=== PATIENT | female | born 1955 | race Caucasian/White ===

== ENCOUNTER 2017-12-25 21:00 | Inpatient (IN) | payer MEDICARE, MEDICAID ==
--- NOTE | 2017-12-25 21:35 | ED Physician Chart ---
ED Chief Complaint/HPI - Patient Information Date Seen:: 12/25/17 Time Seen:: 21:30 Chief Complaint:: sob History of Present Illness:: 62 yr old female with hx of ESRD ON DIALYSIS with sob getting worse no fever or cough some leg swelling Allergies:: Allergies Allergy/AdvReac Type Severity Reaction Status Date / Time Penicillins Allergy Verified 12/25/17 21:11 Vitals:: Vital Signs - 8 hr 12/25/17 21:05 Temp 98.2 F HR 107 RR 20 BP 148/86 O2 Sat % 95 Historian:: Patient ED Review of Systems - Review of Systems General/Constitutional: No fever, No chills, No weight loss, No weakness, No diaphoresis, No edema, No loss of appetite Skin: No skin lesions, No rash, No bruising Head: No headache, No light-headedness Eyes: No loss of vision, No pain, No diplopia ENT: No earache, No nasal drainage, No sore throat, No tinnitus Neck: No neck pain, No swelling, No thyromegaly, No stiffness, No mass noted Cardio Vascular: No chest pain, No palpitations, No PND, No orthopnea, No edema Pulmonary: SOB GI: No nausea, No vomiting, No diarrhea, No pain, No melena, No hematochezia, No constipation, No hematemesis G/U: No dysuria, No frequency, No hematuria Musculoskeletal: No bone or joint pain, No back pain, No muscle pain Endocrine: No polyuria, No polydipsia Psychiatric: No prior psych history, No depression, No anxiety, No suicidal ideation Hematopoietic: No bruising, No lymphadenopathy Allergic/Immuno: No urticaria, No angioedema Neurological: No syncope, No focal symptoms, No weakness, No paresthesia, No headache, No seizure, No dizziness, No confusion, No vertigo ED Past Medical History - Past Medical History Past Medical History: ESRD, Other (renal dialysis) Surgical History: other (large intestine resection) Family Medical History - Family Member Mother History Unknown: Yes ED Physical Exam - Physical Examination General/Constitutional: Awake, Alert Other Gen/Cons comments:: very sob agitated Head: Atraumatic Eyes: Lids, conjuctiva normal Skin: Nl inspection ENMT: External ears, nose nl Neck: Nontender Other Respiratory comments:: sob increased wob and dyspnea Cardio Vascular: RRR GI: No tenderness/rebounding/guarding, No organomegaly : No CVA tenderness Extremities: No tenderness or effusion, Full ROM Neuro/Psych: Alert/oriented, DTR's symmetric Misc: Normal back ED Assessment - Assessment General Assessment: sob renal failure on dialysis ED Septic Shock - . Is Septic Shock (SBP<90, OR Lactate>4 mmol\L) present?: No - <6hrs of presentation: Vital Signs: Vital Signs - 8 hr 12/25/17 21:05 Temp 98.2 F HR 107 RR 20 BP 148/86 O2 Sat % 95 ED Reassessment (Disposition) - Reassessment Reassessment Condition:: Improved - Diagnosis Diagnosis:: sob dyspnea - Patient Disposition Discharge/Transfer:: Acute Care w/in this hosp
[2017-12-25] MEDS ORDERED: Albuterol/Ipratropium Neb 3 ML AERS HHN ONE ×2 (21:45→21:52)
[2017-12-25 22:20] LABS: pH 7.49 (7.35-7.45)
[2017-12-25 22:21] LABS: ALLEN TEST positive
[2017-12-25 22:31] LABS: HEMATOCRIT 30.3 % (41.0-60); HEMOGLOBIN 10.2 gm/dL (12-16); MEAN CORPUSCULAR HEMOGLOBIN 28.6 pg (27.0-31.0); MEAN CORPUSCULAR HGB CONC 33.7 pg (28.0-36.0); PLATELET COUNT 200 Th/cmm (150-400); RED BLOOD COUNT 3.57 Mil/cmm (3.80-5.10); RED CELL DISTRIBUTION WIDTH 15.2 % (11.5-20.0); WHITE BLOOD COUNT 9.5 Th/cmm (4.8-10.8)
[2017-12-25 22:48] LABS: ALBUMIN 3.7 gm/dL (3.7-5.3); ANION GAP 21.4 (7.0-16.0); BILIRUBIN,TOTAL 0.7 mg/dL (0.3-1.0); CALCIUM SERUM 9.8 mg/dL (8.6-10.3); CARBON DIOXIDE 22.4 mEq/L (21.0-31.0); GFR AFRICAN-AMERICAN 7.9 ml/min (>90); GFR NON AFRICAN-AMERICAN 6.6 ml/min; POTASSIUM SERUM 5.8 mEq/L (3.5-5.1); TOTAL PROTEIN,SERUM 7.3 gm/dL (6.0-8.3)
[2017-12-25 22:49] LABS: CREATININE - SERUM 6.8 mg/dL (0.6-1.2)
[2017-12-25 23:00] LABS: LYMPHOCYTE 11 % (20-50); MONOCYTE 1 % (2-10); NEUTROPHILS 88 % (40-80); PLATELET ESTIMATE ADEQUATE (NORMAL); TOTAL CELLS COUNTED 100
[2017-12-25] MEDS ORDERED: Hydrocodone/APAP 10 mg/325 mg Tab ONE (23:57)
[2017-12-26] MEDS: Hydrocodone/APAP 10 mg/325 mg Tab PO PRN ×3 (00:02→20:46)
[2017-12-26 01:06] VITALS: BP 150/82
[2017-12-26] MEDS: Levofloxacin 250mg/50mL 250 MG/50 ML BAG IV SCH (03:27)
[2017-12-26 05:11] LABS: HEMOGLOBIN 10.2 gm/dL (12-16); MEAN CELL VOLUME 84.9 fl (81-100); MEAN PLATELET VOLUME 8.7 fl; PLATELET COUNT 195 Th/cmm (150-400); RED BLOOD COUNT 3.66 Mil/cmm (3.80-5.10); RED CELL DISTRIBUTION WIDTH 14.7 % (11.5-20.0); WHITE BLOOD COUNT 9.2 Th/cmm (4.8-10.8)
[2017-12-26 05:28] LABS: ALBUMIN 3.5 gm/dL (3.7-5.3); ANION GAP 19.9 (7.0-16.0); BILIRUBIN,TOTAL 0.7 mg/dL (0.3-1.0); CALCIUM SERUM 9.9 mg/dL (8.6-10.3); CARBON DIOXIDE 23.3 mEq/L (21.0-31.0); GFR AFRICAN-AMERICAN 7.2 ml/min (>90); GFR NON AFRICAN-AMERICAN 5.9 ml/min; MAGNESIUM 2.2 mg/dL (1.9-2.7); TOTAL PROTEIN,SERUM 7.1 gm/dL (6.0-8.3)
[2017-12-26 05:49] LABS: POTASSIUM SERUM 6.2 mEq/L (3.5-5.1)
[2017-12-26 05:50] LABS: CREATININE - SERUM 7.4 mg/dL (0.6-1.2)
[2017-12-26] MEDS: Albuterol/Ipratropium Neb 3 ML AERS HHN PRN ×3 (05:50→20:09)
[2017-12-26 07:30] LABS: BAND NEUTROPHILE 1 % (0-10); LYMPHOCYTE 8 % (20-50); MONOCYTE 2 % (2-10); NEUTROPHILS 89 % (40-80); TOTAL CELLS COUNTED 100
[2017-12-26] MEDS: Morphine Sulfate 2 mg/mL 1mL Syr IVP PRN ×2 (08:29→15:06)
--- NOTE | 2017-12-26 09:31 | Diagnostic Imaging Report ---
Portable chest x-ray HISTORY: Shortness of breath Prior exams are not available for comparison. The heart is enlarged. There does appear to be degree pulmonary vascular redistribution suggesting an element of cardiac decompensation. Hazy bilateral predominantly lower lobe infiltrates are seen. Changes may be associated with edema. Pneumonia cannot be excluded. Questionable nodular densities in the right upper lobe of the lung. CT scan would provide additional clarification. Correlation with patient history is needed. Right-sided vascular catheter is seen with the tip extending into the region of the right atrium. IMPRESSION: 1. Cardiomegaly lung changes that may be associated with a degree of congestive heart failure. Clinical correlation is needed 2. Questionable nodular densities within the right upper lobe. A CT scan would provide additional clarification
--- NOTE | 2017-12-26 11:24 | Consultation ---
Consult Note - Consult Note Service Date: 12/26/17 Referring Physician: Chloe Vela Consult Note: PHYSICIAN Consultation Note: Date of Admission: 12/25/17 Purpose of Consultation: DIALYSIS STATUS Chief Complaint: SHORTNESS OF BREATH, MISSED DIALYSIS YESTERDAY. History of Present Illness: Patient LEXIS BANKS was admitted to [facility] Telemetry with VOLUME OVERLOAD , POSSIBLE PNA. Past Medical History: MULTIPLE ADMISSIONS SECONDARY TO NONADHERENCE WITH DIALYSIS SCHEDULE ESRD SECONDARY TO DIABETES, HTN HTN DIABETES WITH RENAL, OPHTHO MANIFESTATIONS METASTATIC RENAL CELL CARCINOMA, DENIAL OF DIAGNOSIS--HAD BX DONE AT [facility] THAT SHOWS MALIGNANCY, PT HAS REFUSED TO FOLLOW-UP WITH ONCOLOGY ANEMIA OF ESRD-CANNOT RECEIVE EPOGEN SECONDARY TO ACTIVE RENAL MALIGNANCY SECONDARY HYPERPARATHYROIDISM, RENAL CARDIOMYOPATHY EF 30% NONADHERENCE PAST SURGICAL HISTORY: NEPHRECTOMY STATUS PERMACATH AVF CREATION, NOW NON-FUNCTIONAL SOCIAL HISTORY: NO T/E/D LIVES AT HOME WITH HER SON Allergies Allergy/AdvReac Type Severity Reaction Status Date / Time Penicillins Allergy Verified 12/25/17 21:11 Vital Signs Temp 98.3 F 12/26/17 07:51 Pulse 102 12/26/17 10:15 Resp 18 12/26/17 10:21 BP 147/83 12/26/17 07:51 Pulse Ox 99 12/26/17 10:15 Intake & Output 12/25/17 12/26/17 12/26/17 18:59 06:59 18:59 Weight (lbs) 49.442 kg Other: Weight Source [facility] Laboratory Results - last 24 hr 12/25/17 12/25/17 12/25/17 21:47 22:15 22:15 WBC 9.5 RBC 3.57 L Hgb 10.2 L Hct 30.3 L MCV 85.0 MCH 28.6 MCHC Differential 33.7 RDW 15.2 Plt Count 200 MPV 8.0 Band Neutrophils % Neutrophils (Manual) 88 H Lymphocytes 11 L Monocytes 1 L Platelet Estimate ADEQUATE Specimen Source arterial Sample Site right radial pH 7.49 H pCO2 32.0 L pO2 77.0 L HCO3 26.1 H Base Excess 1.6 O2 Saturation 96.0 Khang Test positive Vent Rate n/a Inspired O2 28 Tidal Volume n/a PEEP n/a Pressure (ins/psv/peep) n/a Critical Value abroedel Sodium 133 L Potassium 5.8 H Chloride 95 L Carbon Dioxide 22.4 Anion Gap 21.4 H BUN 45 H Creatinine 6.8 H* Est GFR ( Amer) 7.9 Est GFR (Non-Af Amer) 6.6 BUN/Creatinine Ratio 6.6 Glucose 100 Whole Bld Lactic Acid Calcium 9.8 Magnesium Total Bilirubin 0.7 AST 13 ALT 10 Alkaline Phosphatase 1409 H Troponin I B-Natriuretic Peptide Total Protein 7.3 Albumin 3.7 Globulin 3.6 Albumin/Globulin Ratio 1.0 12/25/17 12/25/17 12/25/17 22:15 22:15 22:15 WBC RBC Hgb Hct MCV MCH MCHC Differential RDW Plt Count MPV Band Neutrophils % Neutrophils (Manual) Lymphocytes Monocytes Platelet Estimate Specimen Source Sample Site pH pCO2 pO2 HCO3 Base Excess O2 Saturation Khang Test Vent Rate Inspired O2 Tidal Volume PEEP Pressure (ins/psv/peep) Critical Value Sodium Potassium Chloride Carbon Dioxide Anion Gap BUN Creatinine Est GFR ( Amer) Est GFR (Non-Af Amer) BUN/Creatinine Ratio Glucose Whole Bld Lactic Acid 1.61 Calcium Magnesium Total Bilirubin AST ALT Alkaline Phosphatase Troponin I 0.06 H B-Natriuretic Peptide 3230.0 H Total Protein Albumin Globulin Albumin/Globulin Ratio 12/26/17 12/26/17 04:35 04:35 WBC 9.2 RBC 3.66 L Hgb 10.2 L Hct 31.0 L MCV 84.9 MCH 28.0 MCHC Differential 33.0 RDW 14.7 Plt Count 195 MPV 8.7 Band Neutrophils % 1 Neutrophils (Manual) 89 H Lymphocytes 8 L Monocytes 2 Platelet Estimate Specimen Source Sample Site pH pCO2 pO2 HCO3 Base Excess O2 Saturation Khang Test Vent Rate Inspired O2 Tidal Volume PEEP Pressure (ins/psv/peep) Critical Value Sodium 132 L Potassium 6.2 H* Chloride 95 L Carbon Dioxide 23.3 Anion Gap 19.9 H BUN 47 H Creatinine 7.4 H* Est GFR ( Amer) 7.2 Est GFR (Non-Af Amer) 5.9 BUN/Creatinine Ratio 6.4 Glucose 90 Whole Bld Lactic Acid Calcium 9.9 Magnesium 2.2 Total Bilirubin 0.7 AST 11 L ALT 7 Alkaline Phosphatase 1584 H Troponin I B-Natriuretic Peptide Total Protein 7.1 Albumin 3.5 L Globulin 3.6 Albumin/Globulin Ratio 1.0 Home Medication Medication Instructions Recorded Type Lorazepam [Ativan] 0.5 mg PO BID 12/26/17 History Current Medications Generic Name Dose Route Start Last Admin Trade Name Freq PRN Reason Stop Dose Admin Acetaminophen/Hydrocodone Bitart 1 tab 12/25/17 23:41 12/26/17 05:17 [place] 10 Mg/325 Mg PO 02/23/18 23:40 1 tab Q4H PRN Administration Abdominal Pain Albuterol/Ipratropium 3 ml 12/26/17 00:59 12/26/17 10:15 Duoneb Neb HHN 02/24/18 00:58 3 ml Q4HRT PRN Administration Wheezing Heparin Sodium (Porcine) 5,000 units 12/27/17 00:00 Heparin HD 12/28/17 00:00 UD JERRELL Levofloxacin 250 mg in 50 mls @ 50 mls/hr 12/26/17 02:00 12/26/17 03:27 Levaquin Pb IV 02/24/18 01:59 50 mls/hr Q24H JERRELL Administration Albumin Human 12.5 gm in 50 mls @ 50 mls/hr 12/27/17 00:00 Albutein 25% IV 12/27/17 23:59 X1 PRN BP Support During HD Sodium Chloride 500 mls @ 0 mls/hr 12/27/17 00:00 Nacl 0.9% IV 12/27/17 23:59 .Q0M PRN BP Support During Hemodialysis Wide Open Lorazepam 0.5 mg 12/26/17 09:00 Ativan PO 02/24/18 08:59 BID JERRELL Protocol Morphine Sulfate 1 mg 12/26/17 07:44 12/26/17 08:29 Morphine IVP 02/24/18 07:43 1 mg Q4H PRN Administration Pain (Severe) Review of Systems: A 12 point ROS was reviewed with the pertinent positive and negatives noted in the HPI. Social History Smoking Status Unknown if ever smoked Drug Use No Alcohol Use No Family Medical History Family Medical History Start: 12/26/17 00: 01 Freq: ONCE Status: Active Protocol: Document 12/26/17 00:01 ERI (Rec: 12/26/17 02:11 ERI [id number] ) Family Medical History Mother History Unknown Yes Physical Exam: General: AWAKE, ALERT, SHORT OF BREATH HEENT: LEGALLY BLIND Cardio: S1 S2 NO RUB Respiratory: BIBASILAR CRACKLES Extremities: NO LE EDEMA Assessment: 1. PULMONARY EDEMA SECONDARY DIALYSIS NON-ADHERENCE, SYMPTOMATIC -URGENT DIALYSIS TODAY -REPEAT HD TOMORROW TO OPTIMIZE VOLUME CONTROL 2. HYPERKALEMIA, STABLE -HD TODAY AND TOMORROW -RENAL DIET 3. ANEMIA OF ESRD, STABLE -NO EPOGEN SECONDARY TO ACTIVE MALIGNANCY -TRANSFUSE NECESSARY -CHECK IRON PANEL 4.METASTATIC RCC, ACTIVE -PATIENT IN DENIAL ABOUT DIAGNOSIS -REFUSES ONCOLOGY F/UP AND TREATMENT 5. HYPERTENSION, STABLE -MONITOR AT THIS TIME 6. POSSIBLE PNA, STABLE -CONTINUE ABX COVERAGE Plan: SEE ABOVE, THANK YOU DR. JODY GILBERT D/W RN, PT, HD RN, AND Jose Foy Amna A., M.D. 112
--- NOTE | 2017-12-26 12:05 | History & Physical ---
ADMIT DATE: CHIEF COMPLAINT: Shortness of breath and bilateral lower extremity edema. HISTORY OF PRESENT ILLNESS: The patient is a 62-year-old female with history of end-stage renal disease, which per patient's history was secondary to chronic kidney stones, on hemodialysis Tuesdays, and Fridays, who was in her usual state of health until 3 days ago when she started having worsening shortness of breath, especially on exertion, some orthopnea and mild lower extremity edema. Pertinent findings at the ED include a potassium level of 5.8 and a chest x-ray showing #1, cardiomegaly that might be associated with a degree of congestive heart failure and #2, questionable nodular densities within the right upper lobe. The patient has been admitted to [facility] for further management and care. The patient denies any chest pain, palpitations, any fever, chills or any cough. She does complain of fatigue and generalized weakness. PAST MEDICAL HISTORY: As noted above. She is legally blind secondary to chronic prednisone use, which she took for colitis; previous colitis and chronic anxiety. PAST SURGERIES: There is a left arm graft that she had done about 5 years ago and she had as noted above multiple kidney stone removals with what sounds to be laser treatment. FAMILY HISTORY: Noncontributory. SOCIAL HISTORY: No tobacco, ETOH or illicit drug usage. She lives at home with family. ALLERGIES: Allergic to penicillin with reported rash. OUTPATIENT MEDICATIONS: Lorazepam 0.5 b.i.d. REVIEW OF SYSTEMS: CONSTITUTIONAL: Generalized weakness and tiredness. No fever or chills. CARDIAC: No chest pain, palpitations. PULMONARY: Please refer to the HPI. She denies any cough. GASTROINTESTINAL: No bowel habit changes. GENITOURINARY: No bladder habit changes. NEUROLOGIC: No changes in vision, no headaches. PHYSICAL EXAMINATION: VITAL SIGNS: Temperature 98.3, pulse 106, BP 147/83, respirations 18-20, satting 98-99% on 2 liters. GENERAL: She is a well-developed, well-nourished female, not in acute distress. HEAD: Normocephalic, atraumatic. NECK: There is no JVD or LAD. CARDIAC: Regular rate and rhythm without any murmurs. LUNGS: There are some fine crackles noted on bibasilar, otherwise clear to auscultation bilaterally. ABDOMEN: Soft, supple, nontender, nondistended, normoactive bowel sounds. LOWER EXTREMITY: There is trace edema up to the mid shins. LABORATORY DATA: H and H 04/17. Sodium 133, potassium 5.8, chloride 95, CO2 22, BUN 45, creatinine 6.8. Alk phos 1409. Troponin 0.06. BNP 3230. Albumin 3.7. ABG on room air shows a pH of 7.49, pCO2 of 32, pO2 77 and a bicarb of 26. DIAGNOSTICS: Please refer to the HPI. EKG; sinus tachycardia, rate of 101. IMPRESSION: 1. Dyspnea, likely secondary to congestive heart failure secondary to volume overload, rule out bronchitis versus early pneumonia. 2. History of end-stage renal disease. 3. History of previous colitis. 4. Legally blind. 5. Chronic anemia secondary to end-stage renal disease. 6. Hyperkalemia. 7. Elevated alk phos, which could be secondary to volume overload as well as there are no signs and symptoms of cholecystitis. PLAN: The patient has been admitted to the medical floor for further management and care. The patient has been placed empirically on IV antibiotics, namely Levaquin 250 mg IV q. 24 hours and will be kept on her lorazepam as needed. I have asked for a nephrology eval for management of dialysis. JOB# [id number] ADDENDUM: CASE WAS D/W PATIENT'S [employer]-DR. [employer] INFORM ME THE PATIENT HAS A HX OF RENAL CARCINOMA WITH METS, AND NONCOMPLIANCE. APPARENTELY, PT MISSED HD THE DAY PRIOR TO ADMISSION. MTDD
[2017-12-26] MEDS ORDERED: Menthol/Methyl Salicylate Cream TP PRN (22:18)
[2017-12-26] MEDS: Pantoprazole 40 mg EC Tab PO SCH (23:01)
[2017-12-27] MEDS ORDERED: Albumin 25% 12.5gm/50mL 12.5 GM/50 ML BTL IV PRN
[2017-12-27] MEDS ORDERED: Sodium Chloride 0.9% 500 ML IV PRN
[2017-12-27] MEDS: Levofloxacin 250mg/50mL 250 MG/50 ML BAG IV SCH (02:01)
[2017-12-27 06:38] LABS: % BASOPHILS 0.7 % (0.0-2.0); % EOSINOPHILS 2.3 % (0.0-5.0); % LYMPHOCYTES 5.9 % (20.0-50.0); % MONOCYTES 7.9 % (2.0-10.0); % NEUTROPHILS 83.2 % (40.0-80.0); BASOPHILE ABSOLUTE 0.1 Th/cumm (0-0.2); EOSINOPHILE ABSOLUTE 0.2 Th/cmm (0.1-0.4); HEMATOCRIT 28.3 % (41.0-60); HEMOGLOBIN 9.5 gm/dL (12-16); LYMPHOCYTE ABSOLUTE 0.4 Th/cmm (1.5-3.0); MEAN CELL VOLUME 84.4 fl (81-100); MEAN CORPUSCULAR HEMOGLOBIN 28.4 pg (27.0-31.0); MEAN CORPUSCULAR HGB CONC 33.6 pg (28.0-36.0); MEAN PLATELET VOLUME 8.6 fl; MONOCYTE ABSOLUTE 0.6 Th/cmm (0.3-1.0); NEUTROPHILE ABSOLUTE 5.9 Th/cmm (1.8-8.0); PLATELET COUNT 191 Th/cmm (150-400); RED BLOOD COUNT 3.35 Mil/cmm (3.80-5.10); RED CELL DISTRIBUTION WIDTH 14.9 % (11.5-20.0); WHITE BLOOD COUNT 7.2 Th/cmm (4.8-10.8)
[2017-12-27] MEDS: Albuterol/Ipratropium Neb 3 ML AERS HHN PRN ×2 (07:58→13:21)
--- NOTE | 2017-12-27 07:58 | Diagnostic Imaging Report ---
CT Chest without IV contrast HISTORY: Shortness of breath COMPARISON: Chest x-ray 12/25/2017. Technique: Axial images were obtained from the base of the neck to the upper abdomen without IV contrast. Reconstructions were made. Total DLP 208, CTD I 5.6 Findings: Exam is limited due to lack of IV contrast. A right-sided dialysis catheter is seen terminating in the right atrium. Mildly prominent mediastinal lymph nodes are noted. Cardiomegaly is noted with small pericardial effusion. Moderate atherosclerotic vascular disease is noted. There are multiple pulmonary nodules consistent with metastatic disease the largest in the right upper lobe measuring 2.5 cm. Small bilateral effusions and bibasal infiltrates and consolidative changes are also noted. Anasarca is noted. Distended gallbladder is seen with what appears to be a small gallstones. Prominent spleen is noted. There is severe osteopenia with multilevel vertebral body loss of height. There may be diffuse osteolytic metastatic disease. Small amount of ascites is noted. IMPRESSION: Findings consistent with diffuse pulmonary metastatic disease. Bilateral [id number] pleural effusions are seen with bibasal passive atelectasis/infiltrates and consolidative changes. Cardiomegaly and atherosclerotic vascular disease Diffuse abnormal mineralization of the bones with diffuse multilevel vertebral body loss of height. This may be underlying osteolytic metastatic disease. Moderate prominent mediastinal lymph nodes. Metastatic disease cannot be excluded. Splenomegaly. Small amount of ascites. Distended gallbladder with small gallstones. Consider follow-up with ultrasound. Anasarca.
[2017-12-27 08:09] LABS: ALB/GLOB RATIO 1.1 (1.0-1.8); ALBUMIN 3.5 gm/dL (3.7-5.3); ANION GAP 17.1 (7.0-16.0); BILIRUBIN,TOTAL 0.7 mg/dL (0.3-1.0); CALCIUM SERUM 9.4 mg/dL (8.6-10.3); CARBON DIOXIDE 26.1 mEq/L (21.0-31.0); GFR AFRICAN-AMERICAN 12.8 ml/min (>90); GFR NON AFRICAN-AMERICAN 10.6 ml/min; TOTAL PROTEIN,SERUM 6.7 gm/dL (6.0-8.3)
[2017-12-27 08:12] LABS: POTASSIUM SERUM 4.2 mEq/L (3.5-5.1)
[2017-12-27 08:14] LABS: CREATININE - SERUM 4.5 mg/dL (0.6-1.2)
[2017-12-27] MEDS ORDERED: Heparin Sod 1,000 Units/mL 10ml HD ONE ×2 (08:30→08:40)
[2017-12-27] MEDS: Pantoprazole 40 mg EC Tab PO SCH (09:00)
--- NOTE | 2017-12-27 11:22 | General Progress Note ---
Subjective - Review of Systems Service Date: 12/27/17 Subjective: Sleeping, seen on HD this AM Objective - Results Result Diagrams: 12/27/17 06:06 12/27/17 07:40 Recent Labs: Laboratory Last Values WBC 7.2 Th/cmm (4.8-10.8) 12/27/17 06:06 RBC 3.35 Mil/cmm (3.80-5.10) L 12/27/17 06:06 Hgb 9.5 gm/dL (12-16) L 12/27/17 06:06 Hct 28.3 % (41.0-60) L 12/27/17 06:06 MCV 84.4 fl (81-100) 12/27/17 06:06 MCH 28.4 pg (27.0-31.0) 12/27/17 06:06 MCHC Differential 33.6 pg (28.0-36.0) 12/27/17 06:06 RDW 14.9 % (11.5-20.0) 12/27/17 06:06 Plt Count 191 Th/cmm (150-400) 12/27/17 06:06 MPV 8.6 fl 12/27/17 06:06 Neutrophils % 83.2 % (40.0-80.0) H 12/27/17 06:06 Band Neutrophils % 1 % (0-10) 12/26/17 04:35 Lymphocytes % 5.9 % (20.0-50.0) L 12/27/17 06:06 Monocytes % 7.9 % (2.0-10.0) 12/27/17 06:06 Eosinophils % 2.3 % (0.0-5.0) 12/27/17 06:06 Basophils % 0.7 % (0.0-2.0) 12/27/17 06:06 Neutrophils (Manual) 89 % (40-80) H 12/26/17 04:35 Lymphocytes 8 % (20-50) L 12/26/17 04:35 Monocytes 2 % (2-10) 12/26/17 04:35 Platelet Estimate ADEQUATE (NORMAL) 12/25/17 22:15 Specimen Source arterial 12/25/17 21:47 Sample Site right radial 12/25/17 21:47 pH 7.49 (7.35-7.45) H 12/25/17 21:47 pCO2 32.0 mmHg (35.0-45.0) L 12/25/17 21:47 pO2 77.0 mmHg (80.0-100.0) L 12/25/17 21:47 HCO3 26.1 mEq/L (20.0-26.0) H 12/25/17 21:47 Base Excess 1.6 mEq/L (-3.0-3.0) 12/25/17 21:47 O2 Saturation 96.0 % (92.0-100.0) 12/25/17 21:47 Khang Test positive 12/25/17 21:47 Vent Rate n/a 12/25/17 21:47 Inspired O2 28 12/25/17 21:47 Tidal Volume n/a 12/25/17 21:47 PEEP n/a 12/25/17 21:47 Pressure (ins/psv/peep) n/a 12/25/17 21:47 Critical Value abroedel 12/25/17 21:47 Sodium mEq/L (136-145) 12/27/17 06:06 Potassium 4.2 mEq/L (3.5-5.1) D 12/27/17 07:40 Chloride 99 mEq/L (98-107) 12/27/17 07:40 Carbon Dioxide 26.1 mEq/L (21.0-31.0) 12/27/17 07:40 Anion Gap 17.1 (7.0-16.0) H 12/27/17 07:40 BUN 24 mg/dL (7-25) 12/27/17 07:40 Creatinine 4.5 mg/dL (0.6-1.2) H* 12/27/17 07:40 Est GFR ( Amer) 12.8 ml/min (>90) 12/27/17 07:40 Est GFR (Non-Af Amer) 10.6 ml/min 12/27/17 07:40 BUN/Creatinine Ratio 5.3 12/27/17 07:40 Glucose 106 mg/dL (70-105) H 12/27/17 07:40 Whole Bld Lactic Acid 1.61 mmol/L (0.60-1.99) 12/25/17 22:15 Calcium 9.4 mg/dL (8.6-10.3) 12/27/17 07:40 Magnesium 2.2 mg/dL (1.9-2.7) 12/26/17 04:35 Total Bilirubin 0.7 mg/dL (0.3-1.0) 12/27/17 07:40 AST 10 U/L (13-39) L 12/27/17 07:40 ALT 7 U/L (7-52) 12/27/17 07:40 Alkaline Phosphatase 1450 U/L (34-104) H 12/27/17 07:40 Troponin I 0.06 ng/mL (0.01-0.05) H 12/25/17 22:15 B-Natriuretic Peptide 3230.0 pg/mL (5.0-100.0) H 12/25/17 22:15 Total Protein 6.7 gm/dL (6.0-8.3) 12/27/17 07:40 Albumin 3.5 gm/dL (3.7-5.3) L 12/27/17 07:40 Globulin 3.2 gm/dL 12/27/17 07:40 Albumin/Globulin Ratio 1.1 (1.0-1.8) 12/27/17 07:40 - Physical Exam Vitals and I&O: Vital Signs Temp 99.4 F 12/27/17 08:00 Pulse 105 12/27/17 08:00 Resp 17 12/27/17 08:00 BP 129/63 12/27/17 08:00 Pulse Ox 95 12/27/17 08:00 Intake & Output 12/26/17 12/27/17 12/27/17 18:59 06:59 18:59 Intake Total 200 Balance 200 Weight (lbs) 49.442 kg 49.442 kg Intake: Oral 200 Other: # Voids 3 # Bowel Movements 1 Weight Source Bedscale Bedscale Active Medications: Current Medications Acetaminophen/Hydrocodone Bitart ([place] 10 Mg/325 Mg) 1 tab PO Q4H PRN PRN Reason: Abdominal Pain Stop: 02/23/18 23:40 Last Admin: 12/26/17 20:46 Dose: 1 tab Albuterol/Ipratropium (Duoneb Neb) 3 ml HHN Q4HRT PRN PRN Reason: Wheezing Stop: 02/24/18 00:58 Last Admin: 12/27/17 07:58 Dose: 3 ml Camphor/Menthol (Bengay Greaseless 10%-15%) 1 appl TP TID PRN PRN Reason: Pain (Mild) Stop: 02/24/18 22:17 Heparin Sodium (Porcine) (Heparin) 5,000 units HD UD PENDING SALE TO [facility] Stop: 12/27/17 12:59 Levofloxacin (Levaquin Pb) 250 mg in 50 mls @ 50 mls/hr IV Q24H JERRELL Stop: 02/24/18 01:59 Last Admin: 12/27/17 02:01 Dose: 50 mls/hr Albumin Human (Albutein 25%) 12.5 gm in 50 mls @ 50 mls/hr IV UD PRN PRN Reason: BP Support During HD Stop: 12/27/17 23:59 Sodium Chloride (Nacl 0.9%) 500 mls @ 0 mls/hr IV .Q0M PRN PRN Reason: BP Support During Hemodialysis Stop: 12/27/17 23:59 Lorazepam (Ativan) 0.5 mg PO BID PENDING SALE TO [facility]; Protocol Stop: 02/24/18 08:59 Last Admin: 12/27/17 07:07 Dose: 0.5 mg Morphine Sulfate (Morphine) 1 mg IVP Q4H PRN PRN Reason: Pain (Severe) Stop: 02/24/18 07:43 Last Admin: 12/26/17 15:06 Dose: 1 mg Pantoprazole Sodium (Protonix) 40 mg PO DAILY PENDING SALE TO [facility] Stop: 02/24/18 22:59 Last Admin: 12/26/17 23:01 Dose: 40 mg General: Alert HEENT: Atraumatic Neck: Supple Cardiovascular: Regular rate Lungs: Clear to auscultation Extremities: Edema (no edema) Assessment/Plan - Assessment Assessment: ESRD on HD DM1 HTN Metastatic RCC Anemia 2 ESRD PNA - Plan Plan: HD today on MWF schedule BP controlled on HD H&H in range, no need for transfusion, no MARCIAL [address] chest reviewed, small pleural effusions pulm mets may be cause of progressive SOB, doubt volume overload from HD
--- NOTE | 2017-12-27 12:35 | Diagnostic Imaging Report ---
CHEST X-RAY: AP view INDICATION: CHF COMPARISON: CT chest on 12/26/2017 and chest x-ray on 12/25/2017 FINDINGS: Right dialysis catheter is stable. Diffuse infiltrates are noted with pulmonary nodules and congestive changes. Small left effusion is noted. Cardiomegaly is noted. IMPRESSION: Persistent congestive changes, bilateral infiltrates and lung lesions also seen on recent CT chest exam Small left effusion. Cardiomegaly.
[2017-12-27] MEDS: Hydrocodone/APAP 10 mg/325 mg Tab PO PRN (21:25)
[2017-12-27] MEDS ORDERED: Pantoprazole 40 mg EC Tab PO SCH (22:01)
[2017-12-28] MEDS: Levofloxacin 250mg/50mL 250 MG/50 ML BAG IV SCH (02:06)
[2017-12-28 05:51] LABS: HEMOGLOBIN 9.9 gm/dL (12-16); MEAN CELL VOLUME 84.5 fl (81-100); MEAN CORPUSCULAR HGB CONC 33.1 pg (28.0-36.0); MEAN PLATELET VOLUME 8.6 fl; PLATELET COUNT 202 Th/cmm (150-400); RED BLOOD COUNT 3.55 Mil/cmm (3.80-5.10); RED CELL DISTRIBUTION WIDTH 14.9 % (11.5-20.0)
[2017-12-28 06:01] LABS: ANION GAP 15.4 (7.0-16.0); CALCIUM SERUM 9.6 mg/dL (8.6-10.3); CARBON DIOXIDE 27.6 mEq/L (21.0-31.0); GFR AFRICAN-AMERICAN 14.6 ml/min (>90); GFR NON AFRICAN-AMERICAN 12.1 ml/min
[2017-12-28] MEDS: Albuterol/Ipratropium Neb 3 ML AERS HHN PRN ×3 (06:59→18:50)
[2017-12-28 07:08] LABS: NEUTROPHILS 83 % (40-80); TOTAL CELLS COUNTED 100
[2017-12-28 07:09] LABS: BASOPHIL 2 % (0-3); EOSINOPHIL 4 % (0-5); LYMPHOCYTE 6 % (20-50); MONOCYTE 5 % (2-10); PLATELET ESTIMATE ADEQUATE (NORMAL)
[2017-12-28 07:18] LABS: BAND NEUTROPHILE 0 % (0-10)
[2017-12-28] MEDS: Pantoprazole 40 mg EC Tab PO SCH (09:49)
[2017-12-28] MEDS ORDERED: Prednisolone 1% Ophth Susp 5 mL Bottle LEFT EYE PRN (15:06)
--- NOTE | 2017-12-28 16:23 | General Progress Note ---
Subjective - Review of Systems Service Date: 12/28/17 Events since last encounter: none new Subjective: feels better less sob Objective - Results Result Diagrams: 12/28/17 05:05 12/28/17 05:05 Recent Labs: Laboratory Last Values WBC 7.0 Th/cmm (4.8-10.8) 12/28/17 05:05 RBC 3.55 Mil/cmm (3.80-5.10) L 12/28/17 05:05 Hgb 9.9 gm/dL (12-16) L 12/28/17 05:05 Hct 30.0 % (41.0-60) L 12/28/17 05:05 MCV 84.5 fl (81-100) 12/28/17 05:05 MCH 28.0 pg (27.0-31.0) 12/28/17 05:05 MCHC Differential 33.1 pg (28.0-36.0) 12/28/17 05:05 RDW 14.9 % (11.5-20.0) 12/28/17 05:05 Plt Count 202 Th/cmm (150-400) 12/28/17 05:05 MPV 8.6 fl 12/28/17 05:05 Neutrophils % PRINTING MACHINIST 12/28/17 05:05 Band Neutrophils % 0 % (0-10) 12/28/17 05:05 Lymphocytes % PRINTING MACHINIST 12/28/17 05:05 Monocytes % PRINTING MACHINIST 12/28/17 05:05 Eosinophils % PRINTING MACHINIST 12/28/17 05:05 Basophils % PRINTING MACHINIST 12/28/17 05:05 Neutrophils (Manual) 83 % (40-80) H 12/28/17 05:05 Lymphocytes 6 % (20-50) L 12/28/17 05:05 Monocytes 5 % (2-10) 12/28/17 05:05 Eosinophils 4 % (0-5) 12/28/17 05:05 Basophils 2 % (0-3) 12/28/17 05:05 Platelet Estimate ADEQUATE (NORMAL) 12/28/17 05:05 Specimen Source arterial 12/25/17 21:47 Sample Site right radial 12/25/17 21:47 pH 7.49 (7.35-7.45) H 12/25/17 21:47 pCO2 32.0 mmHg (35.0-45.0) L 12/25/17 21:47 pO2 77.0 mmHg (80.0-100.0) L 12/25/17 21:47 HCO3 26.1 mEq/L (20.0-26.0) H 12/25/17 21:47 Base Excess 1.6 mEq/L (-3.0-3.0) 12/25/17 21:47 O2 Saturation 96.0 % (92.0-100.0) 12/25/17 21:47 Khang Test positive 12/25/17 21:47 Vent Rate n/a 12/25/17 21:47 Inspired O2 28 12/25/17 21:47 Tidal Volume n/a 12/25/17 21:47 PEEP n/a 12/25/17 21:47 Pressure (ins/psv/peep) n/a 12/25/17 21:47 Critical Value abroedel 12/25/17 21:47 Sodium 137 mEq/L (136-145) 12/28/17 05:05 Potassium 4.0 mEq/L (3.5-5.1) 12/28/17 05:05 Chloride 98 mEq/L (98-107) 12/28/17 05:05 Carbon Dioxide 27.6 mEq/L (21.0-31.0) 12/28/17 05:05 Anion Gap 15.4 (7.0-16.0) 12/28/17 05:05 BUN 20 mg/dL (7-25) 12/28/17 05:05 Creatinine 4.0 mg/dL (0.6-1.2) H 12/28/17 05:05 Est GFR ( Amer) 14.6 ml/min (>90) 12/28/17 05:05 Est GFR (Non-Af Amer) 12.1 ml/min 12/28/17 05:05 BUN/Creatinine Ratio 5.0 12/28/17 05:05 Glucose 73 mg/dL (70-105) 12/28/17 05:05 Whole Bld Lactic Acid 1.61 mmol/L (0.60-1.99) 12/25/17 22:15 Calcium 9.6 mg/dL (8.6-10.3) 12/28/17 05:05 Magnesium 2.2 mg/dL (1.9-2.7) 12/26/17 04:35 Total Bilirubin 0.7 mg/dL (0.3-1.0) 12/27/17 07:40 AST 10 U/L (13-39) L 12/27/17 07:40 ALT 7 U/L (7-52) 12/27/17 07:40 Alkaline Phosphatase 1450 U/L (34-104) H 12/27/17 07:40 Troponin I 0.06 ng/mL (0.01-0.05) H 12/25/17 22:15 B-Natriuretic Peptide 3230.0 pg/mL (5.0-100.0) H 12/25/17 22:15 Total Protein 6.7 gm/dL (6.0-8.3) 12/27/17 07:40 Albumin 3.5 gm/dL (3.7-5.3) L 12/27/17 07:40 Globulin 3.2 gm/dL 12/27/17 07:40 Albumin/Globulin Ratio 1.1 (1.0-1.8) 12/27/17 07:40 - Physical Exam Vitals and I&O: Vital Signs Temp 98.3 F 12/28/17 12:12 Pulse 100 12/28/17 14:02 Resp 20 12/28/17 14:02 BP 139/74 12/28/17 12:12 Pulse Ox 95 12/28/17 14:02 Intake & Output 12/27/17 12/28/17 12/28/17 18:59 06:59 18:59 Weight (lbs) 49.442 kg Other: # Voids 0 # Bowel Movements 2 Weight Source Bedscale Active Medications: Current Medications Acetaminophen/Hydrocodone Bitart ([place] 10 Mg/325 Mg) 1 tab PO Q4H PRN PRN Reason: Abdominal Pain Stop: 02/23/18 23:40 Last Admin: 12/27/17 21:25 Dose: 1 tab Albuterol/Ipratropium (Duoneb Neb) 3 ml HHN Q4HRT PRN PRN Reason: Wheezing Stop: 02/24/18 00:58 Last Admin: 12/28/17 14:02 Dose: 3 ml Camphor/Menthol ([place]eng[place] Greaseless 10%-15%) 1 appl TP TID PRN PRN Reason: Pain (Mild) Stop: 02/24/18 22:17 Levofloxacin (Levaquin Pb) 250 mg in 50 mls @ 50 mls/hr IV Q24H JERRELL Stop: 02/24/18 01:59 Last Admin: 12/28/17 02:06 Dose: 50 mls/hr Lorazepam (Ativan) 0.5 mg PO BID JERRELL; Protocol Stop: 02/24/18 08:59 Last Admin: 12/28/17 14:24 Dose: 0.5 mg Morphine Sulfate (Morphine) 1 mg IVP Q4H PRN PRN Reason: Pain (Severe) Stop: 02/24/18 07:43 Last Admin: 12/26/17 15:06 Dose: 1 mg Pantoprazole Sodium (Protonix) 40 mg PO DAILY [facility] Stop: 02/24/18 22:59 Last Admin: 12/28/17 09:49 Dose: Not Given Prednisolone Acetate (Pred Forte 1% Ophth Susp) 2 drop LEFT EYE PRN PRN PRN Reason: Allergy Symptoms Stop: 02/26/18 15:14 Last Admin: 12/28/17 15:31 Dose: 2 drop General: Alert HEENT: Atraumatic Neck: Supple Cardiovascular: Regular rate Lungs: Clear to auscultation Extremities: Edema (no edema) Assessment/Plan - Assessment Assessment: 1. ESRD 2. METASTATIC RCC W PULM METS 3. PULM EDEMA 4. DM1 W ESRD 5. HTN W ESRD 6. ANEMIA W ESRD - Plan Plan: HD TOMORROW HERE OR AT OUTPATIENT UNIT CONT CURRENT MGMT
[2017-12-29] MEDS: Hydrocodone/APAP 10 mg/325 mg Tab PO PRN ×2 (02:09→14:18)
[2017-12-29] MEDS: Levofloxacin 250mg/50mL 250 MG/50 ML BAG IV SCH (02:13)
[2017-12-29 06:32] LABS: HEMATOCRIT 30.2 % (41.0-60); HEMOGLOBIN 9.8 gm/dL (12-16); MEAN CELL VOLUME 84.5 fl (81-100); MEAN CORPUSCULAR HEMOGLOBIN 27.4 pg (27.0-31.0); MEAN CORPUSCULAR HGB CONC 32.4 pg (28.0-36.0); MEAN PLATELET VOLUME 8.5 fl; PLATELET COUNT 226 Th/cmm (150-400); RED BLOOD COUNT 3.57 Mil/cmm (3.80-5.10); RED CELL DISTRIBUTION WIDTH 14.9 % (11.5-20.0)
[2017-12-29 06:43] LABS: WHITE BLOOD COUNT 9.2 Th/cmm (4.8-10.8)
[2017-12-29] MEDS: Albuterol/Ipratropium Neb 3 ML AERS HHN PRN ×2 (06:44→17:27)
[2017-12-29 06:45] LABS: ANION GAP 18.8 (7.0-16.0); CALCIUM SERUM 9.7 mg/dL (8.6-10.3); CARBON DIOXIDE 24.1 mEq/L (21.0-31.0); GFR AFRICAN-AMERICAN 9.5 ml/min (>90); GFR NON AFRICAN-AMERICAN 7.9 ml/min; POTASSIUM SERUM 4.9 mEq/L (3.5-5.1)
[2017-12-29 07:23] LABS: CREATININE - SERUM 5.8 mg/dL (0.6-1.2)
[2017-12-29 07:42] LABS: BAND NEUTROPHILE 1 % (0-10); BASOPHIL 1 % (0-3); EOSINOPHIL 6 % (0-5); LYMPHOCYTE 1 % (20-50); MONOCYTE 6 % (2-10); NEUTROPHILS 85 % (40-80); PLATELET ESTIMATE ADEQUATE (NORMAL); PLATELET MORPHOLOGY NORMAL (NORMAL)
[2017-12-29] MEDS: Pantoprazole 40 mg EC Tab PO SCH (08:00)
--- NOTE | 2017-12-29 09:44 | General Progress Note ---
Subjective - Review of Systems Service Date: 12/29/17 Subjective: No new complaints, due for HD today Objective - Results Result Diagrams: 12/29/17 04:50 12/29/17 04:50 Recent Labs: Laboratory Last Values WBC 9.2 Th/cmm (4.8-10.8) D 12/29/17 04:50 RBC 3.57 Mil/cmm (3.80-5.10) L 12/29/17 04:50 Hgb 9.8 gm/dL (12-16) L 12/29/17 04:50 Hct 30.2 % (41.0-60) L 12/29/17 04:50 MCV 84.5 fl (81-100) 12/29/17 04:50 MCH 27.4 pg (27.0-31.0) 12/29/17 04:50 MCHC Differential 32.4 pg (28.0-36.0) 12/29/17 04:50 RDW 14.9 % (11.5-20.0) 12/29/17 04:50 Plt Count 226 Th/cmm (150-400) 12/29/17 04:50 MPV 8.5 fl 12/29/17 04:50 Add Manual Diff YES 12/29/17 04:50 Neutrophils % TIME SIGNAL WIRER 12/28/17 05:05 Band Neutrophils % 1 % (0-10) 12/29/17 04:50 Lymphocytes % TIME SIGNAL WIRER 12/28/17 05:05 Monocytes % TIME SIGNAL WIRER 12/28/17 05:05 Eosinophils % TIME SIGNAL WIRER 12/28/17 05:05 Basophils % TIME SIGNAL WIRER 12/28/17 05:05 Neutrophils (Manual) 85 % (40-80) H 12/29/17 04:50 Lymphocytes 1 % (20-50) L 12/29/17 04:50 Monocytes 6 % (2-10) 12/29/17 04:50 Eosinophils 6 % (0-5) H 12/29/17 04:50 Basophils 1 % (0-3) 12/29/17 04:50 Platelet Estimate ADEQUATE (NORMAL) 12/29/17 04:50 Platelet Morphology NORMAL (NORMAL) 12/29/17 04:50 RBC Morph Micro Appear NORMAL (NORMAL) 12/29/17 04:50 Specimen Source arterial 12/25/17 21:47 Sample Site right radial 12/25/17 21:47 pH 7.49 (7.35-7.45) H 12/25/17 21:47 pCO2 32.0 mmHg (35.0-45.0) L 12/25/17 21:47 pO2 77.0 mmHg (80.0-100.0) L 12/25/17 21:47 HCO3 26.1 mEq/L (20.0-26.0) H 12/25/17 21:47 Base Excess 1.6 mEq/L (-3.0-3.0) 12/25/17 21:47 O2 Saturation 96.0 % (92.0-100.0) 12/25/17 21:47 Khang Test positive 12/25/17 21:47 Vent Rate n/a 12/25/17 21:47 Inspired O2 28 12/25/17 21:47 Tidal Volume n/a 12/25/17 21:47 PEEP n/a 12/25/17 21:47 Pressure (ins/psv/peep) n/a 12/25/17 21:47 Critical Value abroedel 12/25/17 21:47 Sodium 135 mEq/L (136-145) L 12/29/17 04:50 Potassium 4.9 mEq/L (3.5-5.1) 12/29/17 04:50 Chloride 97 mEq/L (98-107) L 12/29/17 04:50 Carbon Dioxide 24.1 mEq/L (21.0-31.0) 12/29/17 04:50 Anion Gap 18.8 (7.0-16.0) H 12/29/17 04:50 BUN 41 mg/dL (7-25) H 12/29/17 04:50 Creatinine 5.8 mg/dL (0.6-1.2) H* 12/29/17 04:50 Est GFR ( Amer) 9.5 ml/min (>90) 12/29/17 04:50 Est GFR (Non-Af Amer) 7.9 ml/min 12/29/17 04:50 BUN/Creatinine Ratio 7.1 12/29/17 04:50 Glucose 101 mg/dL (70-105) 12/29/17 04:50 Whole Bld Lactic Acid 1.61 mmol/L (0.60-1.99) 12/25/17 22:15 Calcium 9.7 mg/dL (8.6-10.3) 12/29/17 04:50 Magnesium 2.2 mg/dL (1.9-2.7) 12/26/17 04:35 Total Bilirubin 0.7 mg/dL (0.3-1.0) 12/27/17 07:40 AST 10 U/L (13-39) L 12/27/17 07:40 ALT 7 U/L (7-52) 12/27/17 07:40 Alkaline Phosphatase 1450 U/L (34-104) H 12/27/17 07:40 Troponin I 0.06 ng/mL (0.01-0.05) H 12/25/17 22:15 B-Natriuretic Peptide 3230.0 pg/mL (5.0-100.0) H 12/25/17 22:15 Total Protein 6.7 gm/dL (6.0-8.3) 12/27/17 07:40 Albumin 3.5 gm/dL (3.7-5.3) L 12/27/17 07:40 Globulin 3.2 gm/dL 12/27/17 07:40 Albumin/Globulin Ratio 1.1 (1.0-1.8) 12/27/17 07:40 - Physical Exam Vitals and I&O: Vital Signs Temp 98.3 F 12/29/17 08:00 Pulse 105 12/29/17 08:00 Resp 18 12/29/17 08:00 BP 128/60 12/29/17 08:00 Pulse Ox 96 12/29/17 08:00 Intake & Output 12/28/17 12/29/17 12/29/17 18:59 06:59 18:59 Intake Total 150 Balance 150 Weight (lbs) 49.442 kg 49.442 kg Intake: Oral 150 Other: # Voids 2 2 # Bowel Movements 2 3 Stool Characteristics Soft Weight Source Bedscale Estimated Active Medications: Current Medications Acetaminophen/Hydrocodone Bitart ([place] 10 Mg/325 Mg) 1 tab PO Q4H PRN PRN Reason: Abdominal Pain Stop: 02/23/18 23:40 Last Admin: 12/29/17 02:09 Dose: 1 tab Albuterol/Ipratropium (Duoneb Neb) 3 ml HHN Q4HRT PRN PRN Reason: Wheezing Stop: 02/24/18 00:58 Last Admin: 12/29/17 06:44 Dose: 3 ml Camphor/Menthol (Bengay Greaseless 10%-15%) 1 appl TP TID PRN PRN Reason: Pain (Mild) Stop: 02/24/18 22:17 Levofloxacin (Levaquin Pb) 250 mg in 50 mls @ 50 mls/hr IV Q24H JERRELL Stop: 02/24/18 01:59 Last Admin: 12/29/17 02:13 Dose: 50 mls/hr Lorazepam (Ativan) 0.5 mg PO BID JERRELL; Protocol Stop: 02/24/18 08:59 Last Admin: 12/29/17 08:00 Dose: 0.5 mg Morphine Sulfate (Morphine) 1 mg IVP Q4H PRN PRN Reason: Pain (Severe) Stop: 02/24/18 07:43 Last Admin: 12/26/17 15:06 Dose: 1 mg Pantoprazole Sodium (Protonix) 40 mg PO DAILY [facility] Stop: 02/24/18 22:59 Last Admin: 12/29/17 08:00 Dose: 40 mg Prednisolone Acetate (Pred Forte 1% Ophth Susp) 2 drop LEFT EYE PRN PRN PRN Reason: Allergy Symptoms Stop: 02/26/18 15:14 Last Admin: 12/28/17 15:31 Dose: 2 drop General: Alert HEENT: Atraumatic Neck: Supple Cardiovascular: Regular rate Lungs: Clear to auscultation Extremities: Edema (no edema) Assessment/Plan - Assessment Assessment: ESRD on HD DM1 HTN Metastatic RCC Anemia 2 ESRD PNA - Plan Plan: HD today on MWF schedule BP controlled on HD H&H in range, no need for transfusion, no MARCIAL 2 malignancy no contraindication to d/c from renal perspective, pt follows with us at [place] dialysis on MWF schedule
--- NOTE | 2017-12-29 17:42 | Discharge Summary ---
DATE OF DISCHARGE: 12/29/2017 ADMITTING DIAGNOSES: 1. Dyspnea, likely secondary to volume overload--Differential includes questionable congestive heart failure versus bronchitis versus early pneumonia. 2. History of end-stage renal disease with noncompliance 3. Metastatic renal disease. 4. Hyperkalemia. 5. Elevated alkaline phos which is likely secondary to volume overload. SECONDARY DIAGNOSES: 1. History of end-stage renal disease, on hemodialysis. 2. History of previous colitis. 3. Legally blind. 4. History of chronic anemia secondary to end-stage renal disease. DISCHARGE DIAGNOSES: 1. Dyspnea secondary to volume overload -- clinically improved. 2. Hyperkalemia, resolved. 3. Noncompliance. CONSULTANTS: Dr. Garcia, Nephrology. MAJOR PROCEDURES: There was a chest CT done on 12/26/2017 showing findings consistent with diffuse pulmonary metastatic disease. Bilateral small to moderate pleural effusions are seen with bibasilar passive atelectasis/infiltrates and consolidative changes. Cardiomyopathy and atherosclerotic vascular disease also noted. There is diffuse abnormal mineralization of the bones with diffuse multilevel vertebral body loss of height. This may be underlying osteolytic metastatic disease. There is moderate prominent mediastinal lymph nodes. A metastatic disease cannot be excluded. There is also splenomegaly and a small amount of ascites. Distended gallbladder with small stones and generalized anasarca. BRIEF HOSPITAL COURSE: The patient is a 62-year-old female with history of end-stage renal disease, on hemodialysis Tuesdays, and Saturdays, who apparently missed one of her dialysis sessions and presented to the ED with a 3-day history of worsening shortness of breath, especially on exertion as well as some orthopnea and mild lower extremity edema. In the ED, her potassium level was noted to be high at 5.8 and a chest x-ray also showed cardiomegaly that might be associated with a degree of congestive heart failure and a questionable nodular densities within the right upper lobe. The patient was admitted to the tele [facility]illo for further management and care. The patient was dialyzed the next day and again on 12/28/2017 (with fluid taken out). After the first dialysis, she responded well with improvement of her clinical symptoms. Her potassium did improve to a level of 4.2 by 12/27/2017. Given her x-ray findings, the patient also underwent a chest CT showing the above-mentioned findings, namely diffuse metastatic disease which likely originated from her kidney or renal cell carcinoma. She has remained stable throughout her hospital stay and as noted above, was seen by Nephrology as well. DISCHARGE MEDICATIONS: Levaquin 250 mg p.o. x 7 days, [place] 10/325 q. 4 p.r.n. for severe pain. DuoNeb q. 4h. p.r.n. for SOB, Ativan 0.5 b.i.d., Protonix 40 every day, prednisolone eyedrops 1%, 2 drops in the left eye p.r.n. This time, immigration case manager is working possible [facility] facility placement, but if unsuccessful the patient will be discharged with home health for close nursing monitoring and adherence to medical compliance. DISPO: Patient was discharge home to self care. She wanted snf placement for rehab, but due to insurance issues, she did not qualify. Therefore home health was offered , which patient refused. I instructed patient to fu with pcp within 2-3 days and nephrology as scheduled. JOB# [id number] [facility]
== END 2017-12-29 18:50 | disposition home or self-care (01) | DRG 640 ==
LOC: ER 21:00 → TELE 23:30
PROVIDERS: ADMIT Internal Medicine; ATTEND Internal Medicine
PROC: 5A1D70Z Performance of Urinary Filtration, Intermittent, Less than 6 Hours Per Day (ICD-10-PCS; principal; 2017-12-26)
PROC: 5A1D70Z Performance of Urinary Filtration, Intermittent, Less than 6 Hours Per Day (ICD-10-PCS; 2017-12-27)
PROC: 5A1D70Z Performance of Urinary Filtration, Intermittent, Less than 6 Hours Per Day (ICD-10-PCS; 2017-12-29)
DX: E87.70 Fluid overload, unspecified (principal); N18.6 End stage renal disease; J18.9 Pneumonia, unspecified organism; C64.9 Malignant neoplasm of unspecified kidney, except renal pelvis; I13.2 Hypertensive heart and chronic kidney disease with heart failure and with stage 5 chronic kidney disease, or end stage renal disease; C78.00 Secondary malignant neoplasm of unspecified lung; I42.9 Cardiomyopathy, unspecified; I50.9 Heart failure, unspecified; Z99.2 Dependence on renal dialysis; D63.1 Anemia in chronic kidney disease; E87.5 Hyperkalemia; N20.0 Calculus of kidney; H54.8 Legal blindness, as defined in USA; F19.90 Other psychoactive substance use, unspecified, uncomplicated; E10.22 Type 1 diabetes mellitus with diabetic chronic kidney disease; Z91.15 Patient's noncompliance with renal dialysis; Z88.0 Allergy status to penicillin; Z90.5 Acquired absence of kidney
CPT/HCPCS: 36415-UA; 36600-90; 71045-TC; 71250-TC; 80048-TC; 80053-TC; 82803-TC; 83605; 83735-TC; 83880-TC; 84484-TC; 85007-TC; 85025-TC; 85027-TC; 90937; 93005; 94640; 94760; 97530; J1644; J1956; J2270; J2650; J7030; X3904; Z7610